=== PATIENT | male | born 1945 | race Caucasian/White ===

== ENCOUNTER 2019-05-19 08:23 | Day surgery (SDC) | payer BC ==
[~2019-05-19 08:23] MED LIST: Lactated Ringers 1,000 ML IV SCH; Sodium Chloride 0.9% 10 ML Syringe FLUSH PRN
[2019-05-19] MEDS ORDERED: fentaNYL 100 MCG/2 ML SDV ONE (09:37)
[2019-05-19] MEDS ORDERED: Propofol 200 MG/20 ML SDV ONE (09:37)
--- NOTE | 2019-05-19 13:13 | OR ---
PREOPERATIVE DIAGNOSIS: Personal history of polyps. POSTOPERATIVE DIAGNOSIS: Personal history of polyps. PROCEDURE PERFORMED: Total flexible colonoscopy with biopsies. ANESTHESIA: MAC anesthesia. COMPLICATIONS: None. BLOOD LOSS: Minimal. FINDINGS: 1. Cecal polyp x2, 1 mm each, cold forceps. 2. Sigmoid polyp, 2 mm x2, cold forceps. 3. Rectal polyps x2, 1 mm, cold forceps. START TIME: 0944. CECUM TIME: 0951. STOP TIME: 1005. BOWEL PREP: Savage class 2. BRIEF HPI: Mr. Khalil is a 73-year-old male who is here for a screening colonoscopy. He is asymptomatic. He has no family history of colon cancer. No bowel changes or bloody or dark black stools. His last colonoscopy was 10 years ago and he reports he had some polyps at that time. I suspect they may have been hyperplastic given he was told 10 year interval, but I do not have a pathology report. PROCEDURE IN DETAIL: After informed consent was obtained, the patient was placed in left lateral decubitus position on the procedure table. MAC anesthesia was induced by Anesthesia colleagues. A digital rectal exam was unremarkable. The endoscope with Endocuff device was introduced through the anal canal and advanced all the way to the cecum. The IC valve and appendiceal orifice were photographed. Scope was then withdrawn. No pathology was identified except for what is mentioned in the finding section above. A retroflexed view of the rectum was unremarkable. The rectum was desufflated and the scope was removed. The patient tolerated the procedure well, was woken from MAC anesthesia by Anesthesia colleagues without incident. PATHOLOGY: A) Cecal polyp Tubular adenoma B) Sigmoid polyp x2 Hyperplastic polyp C) Rectal polyp x2 Hyperplastic polyp Recommended colonoscopy in 5 years. RKM: 05/19/2019 10:11:22 MODL: 05/19/2019 13:07:41 /[id number] WINTER
--- NOTE | 2019-05-31 11:01 | LETTER ---
05/26/2019 Felix Lamas JrRick [id number] [place] [id number] RE: FELIX LAMAS : 1945 Dear Mr. Lamas: I am writing to you to inform you of your pathology results from your recent colonoscopy. You had a polyp called a tubular adenoma. This polyp does not contain cancer, but it can become cancer in the future, which is why I remove them. You also had some other polyps called hyperplastic polyps, which are benign and do not become cancer. You will need another colonoscopy in 5 years. Warmest regards, cc: Aspen Duarte,
== END 2019-05-19 11:53 | disposition home or self-care (01) ==
LOC: VM.SDS 08:23
PROVIDERS: ATTEND Student in an Organized Health Care Education/Training Program
DX: Z12.11 Encounter for screening for malignant neoplasm of colon (principal); D12.0 Benign neoplasm of cecum; K63.5 Polyp of colon; I10 Essential (primary) hypertension; E78.00 Pure hypercholesterolemia, unspecified; G31.84 Mild cognitive impairment of uncertain or unknown etiology; Z86.010 Personal history of colon polyps; Z88.8 Allergy status to other drugs, medicaments and biological substances; Z79.82 Long term (current) use of aspirin; Z79.899 Other long term (current) drug therapy
CPT/HCPCS: 45380; J2704; J3010; J7120

== ENCOUNTER 2019-05-23 20:26 | Emergency (ER) | payer BC ==
--- NOTE | 2019-05-23 23:10 | EDM.PDOC ---
ED HPI GENERAL MEDICAL PROBLEM - General Chief Complaint: General Stated Complaint: NOT FEELING WELL Time Seen by Provider: 05/23/19 20:35 Source of Information: Reports: Patient History Limitations: Reports: No Limitations - History of Present Illness INITIAL COMMENTS - FREE TEXT/NARRATIVE: Pt. presents to ER with complaints of decreased appetite. He states that food doesn't take as good as it usually does. Pt. states that the patient has been napping more recently as well. He has not been experiencing any chest pain or shortness of breath. No cough. No sinus congestion. No nausea, vomiting, or diarrhea. Denies any fever or chills. Pt. denies any numbness/tingling in extremities or face. No extremity weakness. No problems with fever or chills. Denies any rhinorrhea. No sinus congestion. Onset: Today Onset Date: 05/23/19 - Related Data Allergies Allergy/AdvReac Type Severity Reaction Status Date / Time benazepril Allergy Swelling Verified 05/23/19 20:41 Home Meds: Home Meds Calcium Carbonate/Vitamin D3 [Calcium 500 + Vit D 400] 1 tab PO DAILY 05/03/19 [ History] Donepezil HCl [Aricept] 20 mg PO DAILY 05/03/19 [History] Multivitamin with Minerals [Multiple Vitamin] 1 tab PO DAILY 05/03/19 [History] Sildenafil [Viagra] 100 mg PO BEDTIME PRN 05/03/19 [History] atorvaSTATin [Lipitor] 10 mg PO BEDTIME 05/03/19 [History] amLODIPine Besylate [Amlodipine Besylate] 10 mg PO DAILY 05/17/19 [History] hydroCHLOROthiazide [Hydrochlorothiazide] 25 mg PO TID 05/17/19 [History] Past Medical History Cardiovascular History: Reports: High Cholesterol, Hypertension Gastrointestinal History: Reports: Hemorrhoids Genitourinary History: Reports: Other (See Below) Other Genitourinary History: erectile dysfunction Neurological History: Reports: Other (See Below) Other Neuro History: memory loss Oncologic (Cancer) History: Reports: Squamous Cell Carcinoma Dermatologic History: Reports: Other (See Below) Other Dermatologic History: actinic keratosis - Past Surgical History Respiratory Surgical History: Reports: None GI Surgical History: Reports: Colonoscopy, Other (See Below) Other GI Surgeries/Procedures: hemorrhoids Male Surgical History: Reports: Vasectomy Neurological Surgical History: Reports: None Social & Family History - Tobacco Use Smoking Status *Q: Never Smoker - Recreational Drug Use Recreational Drug Use: No ED ROS GENERAL - Review of Systems Review Of Systems: See Below Constitutional: Reports: Fatigue HEENT: Reports: No Symptoms Respiratory: Reports: No Symptoms Cardiovascular: Reports: No Symptoms Endocrine: Reports: No Symptoms GI/Abdominal: Reports: Decreased Appetite : Reports: No Symptoms Musculoskeletal: Reports: No Symptoms Skin: Reports: No Symptoms Neurological: Reports: No Symptoms Psychiatric: Reports: No Symptoms Hematologic/Lymphatic: Reports: No Symptoms Immunologic: Reports: No Symptoms ED EXAM, GENERAL - Physical Exam Exam: See Below Exam Limited By: No Limitations General Appearance: Alert, WD/WN, No Apparent Distress Eye Exam: Bilateral Eye: EOMI, Normal Fundi, Normal Inspection, PERRL Ears: Normal External Exam, Normal Canal, Hearing Grossly Normal, Normal TMs Ear Exam: Bilateral Ear: Auricle Normal, Canal Normal, TM normal Nose: Normal Inspection, Normal Mucosa, No Blood Throat/Mouth: Normal Inspection, Normal Lips, Normal Teeth, Normal Gums, Normal Oropharynx, Normal Voice, No Airway Compromise Head: Atraumatic, Normocephalic Neck: Normal Inspection, Supple, Non-Tender, Full Range of Motion Respiratory/Chest: No Respiratory Distress, Lungs Clear, Normal Breath Sounds, No Accessory Muscle Use, Chest Non-Tender Cardiovascular: Normal Peripheral Pulses, Regular Rate, Rhythm, No Edema, No Gallop, No JVD, No Murmur, No Rub GI/Abdominal: Normal Bowel Sounds, Soft, Non-Tender, No Organomegaly, No Distention, No Abnormal Bruit, No Mass (Male) Exam: Deferred Rectal (Males) Exam: Deferred Back Exam: Normal Inspection, Full Range of Motion, NT Extremities: Normal Inspection, Normal Range of Motion, Non-Tender, Normal Capillary Refill, No Pedal Edema Neurological: Alert, Oriented, CN II-XII Intact, Normal Cognition, Normal Gait, Normal Reflexes, No Motor/Sensory Deficits Psychiatric: Normal Affect, Normal Mood Skin Exam: Warm, Dry, Intact, Normal Color, No Rash Lymphatic: No Adenopathy Course - Vital Signs Last Recorded V/S: Last Vital Signs Temp 36.3 C 05/23/19 20:43 Pulse 67 05/23/19 20:43 Resp 14 05/23/19 20:43 BP 132/77 05/23/19 20:43 Pulse Ox 97 05/23/19 20:43 Departure - Departure Time of Disposition: 21:30 Disposition: Home, Self-Care 01 Clinical Impression: Fatigue - Discharge Information Referrals: Aspen Duarte DO [Primary Care Provider] - Forms: ED Department Discharge Additional Instructions: Return to ER if you have any signs/symptoms such as fever, chills, chest pain, shortness of breath, abdominal pain, headache, trouble walking/speaking. Otherwise follow-up in clinic for screening labs. Sepsis Event Note - Evaluation Sepsis Screening Result: No Definite Risk - Focused Exam Vital Signs: Vital Signs Temp Pulse Resp BP Pulse Ox 05/23/19 20:43 36.3 C 67 14 132/77 97 Date Exam was Performed: 05/23/19 Time Exam was Performed: 23:04 - Assessment/Plan Plan: Return to ER if you have any signs/symptoms such as fever, chills, chest pain, shortness of breath, abdominal pain, headache, trouble walking/speaking. Otherwise follow-up in clinic for screening labs.
== END 2019-05-23 20:53 | disposition home or self-care (01) ==
LOC: VM.ED 20:26 → SUPCPDRO 20:26 → VM.ED 20:53
DX: R53.83 Other fatigue (principal); E78.00 Pure hypercholesterolemia, unspecified; I10 Essential (primary) hypertension; Z79.899 Other long term (current) drug therapy; Z88.8 Allergy status to other drugs, medicaments and biological substances
CPT/HCPCS: 99283